=== PATIENT | male | born 1945 | race Caucasian/White ===

== ENCOUNTER 2016-07-28 08:32 | Day surgery (SDC) | payer MEDICARE ==
[2016-07-28] MEDS ORDERED: NEOMYCIN/POLY./DEXAM OPTH OINT OPTH ONE (11:44)
[2016-07-28] MEDS ORDERED: PHENYLEPHRINE HCL 2.5% OPTH 2ML BTL OP ONE (11:44)
[2016-07-28] MEDS ORDERED: PREDNISOLONE ACETATE 1% OPTH 10ML BOTTLE OPTH ONE (11:44)
[2016-07-28] MEDS ORDERED: EPINEPHRINE 1 MG/ML AMPUL SQ ONE (11:44)
[2016-07-28] MEDS ORDERED: DICLOFENAC SODIUM 2.5 ML DROPS OPTH ONE (11:44)
[2016-07-28] MEDS ORDERED: TROPICAMIDE 1% 15ML BTL OP ONE (11:44)
[2016-07-28] MEDS ORDERED: LIDOCAINE 2% MDV (20MG/ML) 20ML VIAL IV ONE ×2 (11:44→13:39)
[2016-07-28] MEDS ORDERED: TETRACAINE HCL 0.5% 15 ML OPTH BTL OPTH ONE (11:44)
[2016-07-28] MEDS ORDERED: TOBRAMYCIN 0.3% OPTH DROP 5 ML BTL OPTH ONE (11:44)
[2016-07-28] MEDS ORDERED: PROPOFOL 10 MG/ML VIAL IV ONE (13:39)
--- NOTE | 2016-07-28 16:21 | OP NOTE CHAMES ---
DATE OF PROCEDURE: 07/28/16 PREOPERATIVE DIAGNOSIS: Nuclear sclerotic and posterior subcapsular cataract, right eye. POSTOPERATIVE DIAGNOSIS: Nuclear sclerotic and posterior subcapsular cataract, right eye. OPERATION: Phacoemulsification of cataractous lens with implantation of intraocular lens. LENS IMPLANT USED: Dupont Model PCB00 + 22.5 diopters. COMPLICATIONS: None. PROCEDURE IN DETAIL: Following a retrobulbar and facial block, the patient was prepped and draped in the usual fashion for eye surgery. A lid speculum was placed in the right eye after which a 2.4 mm tunnel wound was placed at the temporal limbus and dissected into clear cornea. A paracentesis was placed at 2 oclock hours to the left and right of the initial incision and the chamber deepened with Viscoelastic. The keratome was then used to enter the anterior chamber after which the continuous circular capsulorrhexis was accomplished without difficulty using a bent needle and a Utrata forceps. Hydrodissection and hydrodelineation of the lens was performed after which the nucleus of the lens was removed using the Phaco handpiece in the [id number] technique. The residual cortical material was irrigated and aspirated from the eye after which the bag and chamber were re-examined. The bag was re-inflated with Viscoelastic and the intraocular lens injected into the capsular bag where it centered well. The Viscoelastic was then copiously irrigated and aspirated from the eye after which the temporal tunnel wound and paracentesis were hydrated and the wounds were examined. They were noted to be watertight. The lid speculum was removed from the eye and the eye patched and shielded. The patient was transferred to the recovery room in satisfactory condition and given an appointment to be reexamined in the clinic later today or as directed by Dr. Valladares. Mina Valladares M.D. Date & Time JOB NUMBER: [id number] MTDD
== END 2016-07-28 11:10 | disposition home or self-care (01) ==
LOC: SUR 08:32
PROVIDERS: ATTEND Ophthalmology
DX: H25.11 Age-related nuclear cataract, right eye (principal); H25.041 Posterior subcapsular polar age-related cataract, right eye; I10 Essential (primary) hypertension; E78.00 Pure hypercholesterolemia, unspecified
CPT/HCPCS: J0171

== ENCOUNTER 2016-10-13 21:31 | Observation (INO) | payer MEDICARE ==
--- NOTE | 2016-10-13 21:54 | Emergency Department Record ---
History of Present Illness - General Chief Complaint: Difficulty Breathing Stated Complaint: ELMER Time Seen by Provider: 10/13/16 21:53 Source: Patient, Family Mode of Arrival: Ambulatory - History of Present Illness Initial Comments: 71 yo male presents with an episode of dyspnea on exertion that occurred while hunting. The patient walked about 400 yards out into his field earlier to frias turkeys. He shot a turkey and then when to retrieve the bird. He began walking back to his truck with the bird and his gear and developed significant shortness of breath with walking. He was only able to walk about 50 yards. He called his son who helped him the remainder of the way. The remaining 350 yards required stops every 25-50 yards due dyspnea that was not present earlier when he walked out to the hunting spot. No syncope. No history of CAD. His symptoms have essential resolved at this time. This occurred at 8:20pm (started ). PCP is Dr Bell. Complaint: Shortness of breath Onset/Timin -: Hour(s) Severity: Severe Improves With: Nothing Worsens With: Nothing Context: Occurred during exertion Treatments Prior to Arrival: None - Related Data Home Medications Medication Instructions Recorded Confirmed Last Taken Bisoprolol Fumarate/Hctz [Ziac 1 each PO DAILY 06/04/16 10/13/16 10/12/16 2.5-6.25 mg Tablet] Simvastatin [Zocor] 20 mg PO QHS 06/04/16 10/13/16 10/12/16 Allergies Allergy/AdvReac Type Severity Reaction Status Date / Time No Known Drug Allergies Allergy Verified 06/04/16 23:50 Travel Screening - Travel/Exposure Within Last 30 Days Have you traveled within the last 30 days?: No Review of Systems Constitutional: Denies: Chills, Fever, Weakness Eyes: Denies: Eye discharge ENT: Denies: Congestion, Throat pain Respiratory: Reports: Dyspnea. Denies: Cough, Hemoptysis, Stridor, Wheezes Cardiovascular: Denies: Arrhythmia, Chest pain (dyspnea), Syncope Endocrine: Denies: Fatigue, Polydipsia, Polyuria Gastrointestinal: Denies: Constipation, Nausea, Vomiting Genitourinary: Denies: Dysuria, Frequency, Hematuria Musculoskeletal: Denies: Arthralgia, Back pain, Joint swelling, Myalgia, Neck pain Skin: Denies: Bruising, Change in color, Rash Neurological: Denies: Confusion, Headache, Numbness, Weakness Psychiatric: Denies: Anxiety Hematological/Lymphatic: Denies: Blood Clots, Easy bleeding, Easy bruising, Swollen glands Past Medical History - SOCIAL HISTORY Smoking Status: Never smoker Alcohol Use: None Drug Use: None - RESPIRATORY Hx Respiratory Disorders: Yes Hx Pneumonia: Yes Hx Pulmonary Embolism: Yes - CARDIOVASCULAR Hx Cardio Disorders: Yes Hx Hypertension: Yes - NEURO Hx Neuro Disorders: No - GI Hx GI Disorders: Yes Hx of Polyps: Yes - Hx Genitourinary Disorders: No - ENDOCRINE Hx Endocrine Disorders: No Hx Diabetes: No Hx Thyroid Disease: No - MUSCULOSKELETAL Hx Musculoskeletal Disorders: No - PSYCH Hx Psych Problems: No - HEMATOLOGY/ONCOLOGY Hx Hematology/Oncology Disorders: Yes Hx Cancer: Yes (back) Family Medical History Any Significant Family History?: Yes Hx Cancer: Mother *Cancer Comment: pancreatic Hx Resp Disorders: Father, Children *Resp Comment: emphysema Physical Exam - General General Appearance: Alert, Oriented x3, Cooperative, No acute distress Limitations: No limitations - Head Head exam: Atraumatic, Normal inspection - Eye Eye exam: Normal appearance, PERRL. negative: Conjunctival injection, Periorbital swelling - ENT ENT exam: Normal exam, Mucous membranes moist Ear exam: Normal external inspection Nasal Exam: Normal inspection Mouth exam: Normal external inspection Teeth exam: Normal inspection Throat exam: Normal inspection - Neck Neck exam: Normal inspection, Full ROM. negative: Tenderness - Respiratory Respiratory exam: Decreased breath sounds. negative: Accessory muscle use, Chest wall tenderness, Prolonged expiratory, Rales, Respiratory distress, Rhonchi, Stridor, Wheezes - Cardiovascular Cardiovascular Exam: Regular rate, Normal rhythm, Normal heart sounds - GI/Abdominal GI/Abdominal exam: Soft. negative: Tenderness - Rectal Rectal exam: Deferred - exam: Deferred - Extremities Extremities exam: Normal inspection, Full ROM, Normal capillary refill. negative: Pedal edema, Tenderness - Back Back exam: Reports: Normal inspection - Neurological Neurological exam: Alert, Normal gait, Oriented X3 - Psychiatric Psychiatric exam: Normal affect, Normal mood. negative: Agitated, Anxious - Skin Skin exam: Dry, Intact, Normal color, Warm Course Vital Signs 10/13/16 21:36 Pulse Rate [ 87 Pulse Ox Probe] Respiratory 16 Rate Blood Pressure 166/97 [Left Arm] Pulse Ox 96 - Reevaluation(s) Reevaluation #1: EKG 21:36 NSR, rate 86, intervals normals, axis left, St normal, mild artifact not limiting read 10/13/16 21:53 Medical Decision Making - Lab Data Result diagrams: 10/13/16 22:03 10/13/16 22:03 Disposition Forms: Patient Portal Access
[2016-10-13] MEDS ORDERED: ASPIRIN 325 MG TABLET PO ONE (22:03)
[2016-10-13] MEDS ORDERED: ASPIRIN 81 MG CHEWABLE TABLET PO ONE (22:15)
[2016-10-13 22:20] LABS: BASO % 0.1 % (0-6); EOS % 1.2 % (0-6); GRAN % 75.4 % (47-80); HEMOGLOBIN 15.6 gm/dl (14.0-18.0); LYMPH % 14.8 % (16-45); MEAN CELL VOLUME 87.7 fl (81-97); MEAN CORPUSCULAR HEMOGLOBIN 30.4 pg (27-33); MEAN CORPUSCULAR HGB CONC 34.7 g/dl (32-36); MEAN PLATELET VOLUME 9.2 fl (7.4-10.4); MONO % 8.5 % (0-9); PLATELET COUNT 169 K/uL (130-400); RED BLOOD COUNT 5.13 M/uL (4.40-5.70); RED CELL DISTRIBUTION WIDTH 12.8 % (11.5-14.5); WHITE BLOOD COUNT W/O DIFF 6.8 K/uL (4.2-12.2)
[2016-10-13 22:29] LABS: ALB/GLOB RATIO 1.8 (1.1-1.8); ALBUMIN 4.4 gm/dL (3.5-5.0); ALKALINE PHOSPHATASE 89 U/L (38-126); ALT/SGPT 36 U/L (21-72); ANION GAP 12.2 (7-16); AST/SGOT 31 U/L (17-59); BILIRUBIN,TOTAL 1.12 mg/dL (0.2-1.3); BLOOD UREA NITROGEN 21 mg/dL (9-20); CARBON DIOXIDE 22.8 mmol/L (22-30); CREATINE PHOSPHOKINASE 292 U/L (55-170); CREATININE 1.2 mg/dL (0.66-1.25); EST GLOMERULAR FILTRATION RATE > 60 ml/min; GLUCOSE,RANDOM 101 mg/dL (70-110); TOTAL PROTEIN 6.8 gm/dL (6.3-8.2)
[2016-10-13 22:42] LABS: TROPONIN I < 0.012 ng/mL (0.00-0.034)
--- NOTE | 2016-10-13 22:53 | Emergency Department Record ---
History of Present Illness - General Chief Complaint: Difficulty Breathing Stated Complaint: ELMER Time Seen by Provider: 10/13/16 21:53 Source: Patient, Family Mode of Arrival: Ambulatory Limitations: No limitations - History of Present Illness Initial Comments: This chart represents the addendum, please refer to the initial encounter chart for details. Onset/Timin -: Hour(s) Severity: Severe Improves With: Nothing Worsens With: Nothing Context: Occurred during exertion Treatments Prior to Arrival: None - Related Data Home Medications Medication Instructions Recorded Confirmed Last Taken Bisoprolol Fumarate/Hctz [Ziac 1 each PO DAILY 06/04/16 10/13/16 10/12/16 2.5-6.25 mg Tablet] Simvastatin [Zocor] 20 mg PO QHS 06/04/16 10/13/16 10/12/16 Allergies Allergy/AdvReac Type Severity Reaction Status Date / Time No Known Drug Allergies Allergy Verified 06/04/16 23:50 Travel Screening - Travel/Exposure Within Last 30 Days Have you traveled within the last 30 days?: No Review of Systems Constitutional: Denies: Chills, Fever, Weakness Eyes: Denies: Eye discharge ENT: Denies: Congestion, Throat pain Respiratory: Reports: Dyspnea. Denies: Cough, Hemoptysis, Stridor, Wheezes Cardiovascular: Denies: Arrhythmia, Chest pain (dyspnea), Syncope Endocrine: Denies: Fatigue, Polydipsia, Polyuria Gastrointestinal: Denies: Constipation, Nausea, Vomiting Genitourinary: Denies: Dysuria, Frequency, Hematuria Musculoskeletal: Denies: Arthralgia, Back pain, Joint swelling, Myalgia, Neck pain Skin: Denies: Bruising, Change in color, Rash Neurological: Denies: Confusion, Headache, Numbness, Weakness Psychiatric: Denies: Anxiety Hematological/Lymphatic: Denies: Blood Clots, Easy bleeding, Easy bruising, Swollen glands Past Medical History - SOCIAL HISTORY Smoking Status: Never smoker Alcohol Use: None Drug Use: None - RESPIRATORY Hx Respiratory Disorders: Yes Hx Pneumonia: Yes Hx Pulmonary Embolism: Yes - CARDIOVASCULAR Hx Cardio Disorders: Yes Hx Hypertension: Yes - NEURO Hx Neuro Disorders: No - GI Hx GI Disorders: Yes Hx of Polyps: Yes - Hx Genitourinary Disorders: No - ENDOCRINE Hx Endocrine Disorders: No Hx Diabetes: No Hx Thyroid Disease: No - MUSCULOSKELETAL Hx Musculoskeletal Disorders: No - PSYCH Hx Psych Problems: No - HEMATOLOGY/ONCOLOGY Hx Hematology/Oncology Disorders: Yes Hx Cancer: Yes (back) Family Medical History Any Significant Family History?: Yes Hx Cancer: Mother *Cancer Comment: pancreatic Hx Resp Disorders: Father, Children *Resp Comment: emphysema Physical Exam - General Limitations: No limitations Course Vital Signs 10/13/16 21:36 Pulse Rate [ 87 Pulse Ox Probe] Respiratory 16 Rate Blood Pressure 166/97 [Left Arm] Pulse Ox 96 - Reevaluation(s) Reevaluation #1: The prelim CXR was reviewed. No acute process. 10/13/16 22:57 Medical Decision Making - Lab Data Result diagrams: 10/13/16 22:10 10/13/16 22:10 Lab Results 10/13/16 10/13/16 Range/Units 22:10 22:10 WBC 6.8 (4.2-12.2) K/uL RBC 5.13 (4.40-5.70) M/uL Hgb 15.6 (14.0-18.0) gm/dl Hct 45.0 (42.0-52.0) % MCV 87.7 (81-97) fl MCH 30.4 (27-33) pg MCHC 34.7 (32-36) g/dl RDW 12.8 (11.5-14.5) % Plt Count 169 (130-400) K/uL MPV 9.2 (7.4-10.4) fl Gran % 75.4 (47-80) % Lymphocytes % 14.8 L (16-45) % Monocytes % 8.5 (0-9) % Eosinophils % 1.2 (0-6) % Basophils % 0.1 (0-6) % Sodium 137 (136-145) mmol/L Potassium 3.9 (3.5-5.1) mmol/L Chloride 102 (98-107) mmol/L Carbon Dioxide 22.8 (22-30) mmol/L Anion Gap 12.2 (7-16) BUN 21 H (9-20) mg/dL Creatinine 1.2 (0.66-1.25) mg/dL Estimated GFR > 60 ml/min Random Glucose 101 (70-110) mg/dL Calcium 8.7 (8.5-10.1) mg/dL Total Bilirubin 1.12 (0.2-1.3) mg/dL AST 31 (17-59) U/L ALT 36 (21-72) U/L Alkaline Phosphatase 89 (38-126) U/L Creatine Kinase 292 H (55-170) U/L CK-MB (CK-2) 6.0 (0-6) ug/L Troponin I < 0.012 (0.00-0.034) ng/mL NT-Pro-B Natriuret Pep 206.00 H (<125) pg/mL Total Protein 6.8 (6.3-8.2) gm/dL Albumin 4.4 (3.5-5.0) gm/dL Globulin 2.4 (1.4-4.8) gm/dL Albumin/Globulin Ratio 1.8 (1.1-1.8) Disposition Disposition: Admit Clinical Impression: Dyspnea on exertion Disposition: Still a Patient at [facility] Decision to Admit: Admit from ER Decision to Admit Date: 10/13/16 Decision to Admit Time: 22:50 Condition: (1) Good Forms: Patient Portal Access Time of Disposition: 22:50
[2016-10-14] MEDS ORDERED: SIMVASTATIN 20 MG TABLET PO SCH
[2016-10-14] MEDS: ZIAC PO SCH ×2 (00:11→09:36)
--- NOTE | 2016-10-14 07:39 | RADIOLOGY REPORT ---
EXAM: CHEST, TWO VIEWS HISTORY: PATIENT HAS SHORTNESS OF BREATH. TECHNIQUE: Two views of the chest were provided without comparison studies. FINDINGS: The cardiac silhouette is within normal limits for size and contour. Tortuosity of the thoracic aorta is noted. There is no radiographic evidence of a focal infiltrate or pleural effusion. No pneumothorax is noted. IMPRESSION: NO RADIOGRAPHIC EVIDENCE OF AN ACUTE INTRATHORACIC PROCESS. JOB NUMBER: [id number] MTDD
--- NOTE | 2016-10-14 08:01 | History & Physical ---
History of Present Illness - Date of Service Date of Service for History & Physical: 10/14/16 - History of Present Illness Admitting Diagnosis: Dyspnea on Exertion History of Present Illness: 71yo male with CC of dyspnea with exertion. He has a history of htn, high cholesterol. Had pneumonia with pleural effusion last year and was admitted to [facility]. Patient reports he had echo done at that time that was "normal" but did not have stress testing. Patient was brought to the ED by his son after they had been out turkey hunting. He had walked about 400 feet in to the field without issue but on his way back to the truck started becoming very short of breath. He could only go 25 -50 feet at a time before he would have to stop and take a break. Dyspnea seemed to resolve with rest. He was not having chest pain. While in the ED, patient had EKG which showed normal sinus rhythm. no acute ST changes. 1st set of CE returned wnl. CXR showed no acute process. blood pressure was elevated at 166/97 and o2 sat was 96%. CBC and CMP unremarkable. Patient was admitted for serial enzymes and cardiology was consulted. 10/14/16- Patient states he is doing well this morning. Says his dyspnea had resolved prior to coming to the ED and has not had any further episodes. Says his son made him come in. He denies any chest pain now or previously. reports history of high blood pressure controlled by his ziac. He denies family history of CAD or [place]. He denies lower extremity swelling, decreased exercise tolerance, frequent headaches, inability to sleep laying flat. No previous history of DVT or PE and no family history of clotting disorder. PCP: [facility] Travel Screening - Travel/Exposure Within Last 30 Days Have you traveled within the last 30 days?: No - Travel/Exposure Within Last Year Have you traveled outside the [place] in the last year?: No - Additonal Travel Details Have you been exposed to anyone with a communicable illness?: No - Travel Symptoms Symptom Screening: None Review of Systems Constitutional: Denies: Chills, Fever, Weakness Eyes: Denies: Eye discharge ENT: Denies: Congestion, Throat pain Respiratory: Reports: Dyspnea (yesterday with exertion). Denies: Cough, Hemoptysis, Stridor, Wheezes Cardiovascular: Denies: Arrhythmia, Chest pain, Syncope Endocrine: Denies: Fatigue, Polydipsia, Polyuria Gastrointestinal: Denies: Constipation, Nausea, Vomiting Genitourinary: Denies: Dysuria, Frequency, Hematuria Musculoskeletal: Denies: Arthralgia, Back pain, Joint swelling, Myalgia, Neck pain Skin: Denies: Bruising, Change in color, Rash Neurological: Denies: Confusion, Headache, Numbness, Weakness Psychiatric: Denies: Anxiety Hematological/Lymphatic: Denies: Blood Clots, Easy bleeding, Easy bruising, Swollen glands Past Medical History - SOCIAL HISTORY Smoking Status: Never smoker Alcohol Use: Rare - RESPIRATORY Hx Respiratory Disorders: Yes Hx Pneumonia: Yes Hx Pulmonary Embolism: Yes - CARDIOVASCULAR Hx Cardio Disorders: Yes Hx Hypertension: Yes - NEURO Hx Neuro Disorders: No - GI Hx GI Disorders: Yes Hx of Polyps: Yes - Hx Genitourinary Disorders: No - ENDOCRINE Hx Endocrine Disorders: No Hx Diabetes: No Hx Thyroid Disease: No - MUSCULOSKELETAL Hx Musculoskeletal Disorders: No - PSYCH Hx Psych Problems: No - HEMATOLOGY/ONCOLOGY Hx Hematology/Oncology Disorders: Yes Hx Cancer: Yes (back) Family Medical History Any Significant Family History?: Yes Hx Cancer: Mother *Cancer Comment: pancreatic Hx Resp Disorders: Father, Children *Resp Comment: emphysema H&P Meds/Allergies - Allergies Allergies: Allergies Allergy/AdvReac Type Severity Reaction Status Date / Time No Known Drug Allergies Allergy Verified 06/04/16 23:50 - Home Medications Home Medications Medication Instructions Recorded Confirmed Last Taken Bisoprolol Fumarate/Hctz [Ziac 1 each PO DAILY 06/04/16 10/13/16 10/12/16 2.5-6.25 mg Tablet] Simvastatin [Zocor] 20 mg PO QHS 06/04/16 10/13/16 10/12/16 - Active Medications Active Medications: Current Medications Aspirin (Ecotrin (Ec)) 325 mg PO DAILY [facility] Patient Own Med:Ziac (2.5-6.25) 1 each PO QHS [facility] Last Admin: 10/14/16 00:11 Dose: 1 each Simvastatin (Zocor) 20 mg PO QHS [facility] Last Admin: 10/14/16 00:11 Dose: 20 mg Physical Exam - Vital Signs Vital Signs: Vital Signs - Last 24 Hrs Temp Pulse Resp BP Pulse Ox 10/14/16 07:53 97.7 F 74 18 134/84 95 10/13/16 23:35 97.8 F 80 18 159/93 94 L - General General Appearance: Alert, Oriented x3, Cooperative, No acute distress Limitations: No limitations - Head Head exam: Atraumatic, Normal inspection - Eye Eye exam: Normal appearance, PERRL. negative: Conjunctival injection, Periorbital swelling - ENT ENT exam: Normal exam, Mucous membranes moist Ear exam: Normal external inspection Nasal Exam: Normal inspection Mouth exam: Normal external inspection Teeth exam: Normal inspection Throat exam: Normal inspection - Neck Neck exam: Normal inspection, Full ROM. negative: Tenderness - Respiratory Respiratory exam: Decreased breath sounds. negative: Accessory muscle use, Chest wall tenderness, Prolonged expiratory, Rales, Respiratory distress, Rhonchi, Stridor, Wheezes - Cardiovascular Cardiovascular Exam: Regular rate, Normal rhythm, Normal heart sounds - GI/Abdominal GI/Abdominal exam: Soft. negative: Tenderness - Rectal Rectal exam: Deferred - exam: Deferred - Extremities Extremities exam: Normal inspection, Full ROM, Normal capillary refill. negative: Pedal edema, Tenderness - Back Back exam: Reports: Normal inspection - Neurological Neurological exam: Alert, Normal gait, Oriented X3 - Psychiatric Psychiatric exam: Normal affect, Normal mood. negative: Agitated, Anxious - Skin Skin exam: Dry, Intact, Normal color, Warm Results - Labs Result Diagrams: 10/13/16 22:10 10/13/16 22:10 Labs Last 24 Hours: Laboratory Results - last 24 hr 10/14/16 06:37 Troponin I 0.014 - Imaging and Cardiology Chest x-ray Status: Report reviewed (no acute process) VTE H&P Assessment - Risk for VTE Risk for VTE: Yes Risk Level: Low Risk Assessment Date: 10/14/16 Risk Assessment Time: 10:34 VTE Orders Placed or Will Be Placed: Yes Plan - Detailed Diagnosis and Plan (1) Dyspnea on exertion Current Visit: Yes Status: Acute Base Code: R06.09 - OTHER FORMS OF DYSPNEA Comment: 10/14/16- dyspnea resolved yesterday after resting and no further episodes. CXR showed NAP. 1st set of CE returned wnl. 2nd Troponin wnl range but up just slightly to 0.014. no EKG changes. -continue serial enzymes -cardiology consulted -continue cardic monitoring -vitals q8H (2) Hypertension Current Visit: Yes Status: Acute Qualifiers: Hypertension type: essential hypertension Qualified Code(s): I10 - Essential (primary) hypertension Base Code: I10 - ESSENTIAL (PRIMARY) HYPERTENSION Comment: 10/14/16- BP slightly above goal. Just received morning ziac. -Will continue to monitor (3) Full code status Current Visit: Yes Status: Acute Base Code: Z78.9 - OTHER SPECIFIED HEALTH STATUS Comment: 10/14/16- patient is full code (4) DVT prophylaxis Current Visit: Yes Status: Acute Base Code: [id number] - Comment: 10/14/16- patient is low risk. -encourage ambulation as tolerating -lovenox 40mg sq daily if prolonged stay anticipated
[2016-10-14] MEDS ORDERED: ASPIRIN 325 MG TAB ENTERIC-COATED PO SCH (10:00)
--- NOTE | 2016-10-14 12:55 | Discharge Summary ---
Providers Discharge Summary Date: 10/14/16 Date of admission: 10/13/16 23:33 Expected Date of Discharge: 10/14/16 Attending physician: FAWN IRIZARRY Physical Exam - Vital Signs Vital Signs: Vital Signs - Last 24 Hrs Temp Pulse Resp BP Pulse Ox 10/14/16 09:00 18 10/14/16 07:53 97.7 F 74 18 134/84 95 10/13/16 23:35 97.8 F 80 18 159/93 94 L - General General Appearance: Alert, Oriented x3, Cooperative, No acute distress Limitations: No limitations - Head Head exam: Atraumatic, Normal inspection - Eye Eye exam: Normal appearance, PERRL. negative: Conjunctival injection, Periorbital swelling - ENT ENT exam: Normal exam, Mucous membranes moist Ear exam: Normal external inspection Nasal Exam: Normal inspection Mouth exam: Normal external inspection Teeth exam: Normal inspection Throat exam: Normal inspection - Neck Neck exam: Normal inspection, Full ROM. negative: Tenderness - Respiratory Respiratory exam: Decreased breath sounds. negative: Accessory muscle use, Chest wall tenderness, Prolonged expiratory, Rales, Respiratory distress, Rhonchi, Stridor, Wheezes - Cardiovascular Cardiovascular Exam: Regular rate, Normal rhythm, Normal heart sounds - GI/Abdominal GI/Abdominal exam: Soft. negative: Tenderness - Rectal Rectal exam: Deferred - exam: Deferred - Extremities Extremities exam: Normal inspection, Full ROM, Normal capillary refill. negative: Pedal edema, Tenderness - Back Back exam: Reports: Normal inspection - Neurological Neurological exam: Alert, Normal gait, Oriented X3 - Psychiatric Psychiatric exam: Normal affect, Normal mood. negative: Agitated, Anxious - Skin Skin exam: Dry, Intact, Normal color, Warm Hospitalization - Hospitalization Admission Diagnosis: Dyspnea on Exertion - Problem List/Discharge Diagnosis (1) Dyspnea on exertion Status: Acute Base Code: R06.09 - OTHER FORMS OF DYSPNEA Comment: 10/14/16- dyspnea resolved yesterday after resting and no further episodes. CXR showed NAP. all 3 sets of CE wnl range. no EKG changes. D-dimer wnl range. Dr. Solorzano, cardiology, evaluated patient and ordered treadmill stress test and echo. Patient completed treadmill stress test but was not able to achieve heart rate goal. Echo showed normal EF and no wall motion abnormalities. -will discharge home with Nuclear stress test set up for Monday with Dr. Enriquez, cardiology -will increase his Ziac to 5-6.25mg and ask patient to hold the night prior to stress test -add baby aspirin 81mg daily -follow up as outpatient with cardiology as instructed and with pcp following completion of cardiac work-up. (2) Hypertension Status: Acute Discharge Diagnosis: Hypertension type: essential hypertension Qualified Code(s): I10 - Essential (primary) hypertension Base Code: I10 - ESSENTIAL (PRIMARY) HYPERTENSION Comment: 10/14/16- Increase ziac to 5-6.25mg po daily (3) Full code status Status: Acute Base Code: Z78.9 - OTHER SPECIFIED HEALTH STATUS Comment: - patient is full code (4) DVT prophylaxis Status: Acute Base Code: [id number] - Comment: 10/14/16- patient is low risk. -encourage ambulation as tolerating -lovenox 40mg sq daily if prolonged stay anticipated - Hospitalization Course Disposition: Home, Self-Care Hospital Course: 71yo male with CC of dyspnea with exertion. He has a history of htn, high cholesterol. Had pneumonia with pleural effusion last year and was admitted to [facility]. Patient reports he had echo done at that time that was "normal" but did not have stress testing. Patient was brought to the ED by his son after they had been out turkey hunting. He had walked about 400 feet in to the field without issue but on his way back to the truck started becoming very short of breath. He could only go 25 -50 feet at a time before he would have to stop and take a break. Dyspnea seemed to resolve with rest. He was not having chest pain. While in the ED, patient had EKG which showed normal sinus rhythm. no acute ST changes. 1st set of CE returned wnl. CXR showed no acute process. blood pressure was elevated at 166/97 and o2 sat was 96%. CBC and CMP unremarkable. Patient was admitted for serial enzymes and cardiology was consulted. 10/14/16- Patient states he is doing well this morning. Says his dyspnea had resolved prior to coming to the ED and has not had any further episodes. Says his son made him come in. He denies any chest pain now or previously. reports history of high blood pressure controlled by his ziac. He denies family history of CAD or NV. He denies lower extremity swelling, decreased exercise tolerance, frequent headaches, inability to sleep laying flat. No previous history of DVT or PE and no family history of clotting disorder. Procedures: Cardiology Procedures 10/14/16 11:33 Stress EKG/STD Treadmill NOW 10/14/16 11:35 Echo W/CF & Cardiac Doppler NOW Condition at Discharge: (2) Stable Discharge Medications - Discharge Medications Prescriptions: Aspirin [Aspir-Low] 81 mg PO DAILY #30 tablet. Bisoprolol Fumarate/Hctz [Ziac 5-6.25 mg Tablet] 1 each PO DAILY #30 tablet Home Medications: Ambulatory Orders Simvastatin [Zocor] 20 mg PO QHS 06/04/16 [Last Taken 10/12/16] Aspirin [Aspir-Low] 81 mg PO DAILY #30 tablet. 10/14/16 [Last Taken Unknown] Bisoprolol Fumarate/Hctz [Ziac 5-6.25 mg Tablet] 1 each PO DAILY #30 tablet 10/26 [Last Taken Unknown] Discharge Plan - Discharge Instructions Activity at Discharge: Resume Usual Activities As Tolerated Instructions: Aspirin (By mouth), Bisoprolol/Hydrochlorothiazide (By mouth), Transthoracic Echocardiogram (DC), Pharmacologic with Radiopharmacologic Stress Testing (DC) Additional Instructions: 2 Activity: Resume Usual Activities As Tolerated 2 Diet: As tolerated 2 Consults: [] 2 Follow Up: [Follow up on Monday for Nuclear Stress test with Dr. Enriquez here at [facility], [facility] will call Monday am for an appointment time, keep 1pm- 4pm open on Monday, October 17. If they have not contact you by 10am, please call [phone] to find out the status of your appointment. Follow up with your primary care physician in 7-10 days] 2 Dressing/Wound Care: (Type) (Change) 2 Additional: [] Continue home medications Hold your ziac the night before the study (no Ziac Monday night) New medications Discontinue the Ziac 2.5-6.25 and start Ziac 5-6.25 Start baby aspirin 81mg daily
--- NOTE | 2016-10-19 13:04 | Medical Records Consult ---
DATE OF CONSULTATION: 10/14/16 INDICATION: Dyspnea on exertion. This is a 71-year-old male was seen in the Emergency Department. He was out turkey hunting on and he was just sitting waiting for turkeys for about four or five hours and eventually he saw one, he shot it and when he was carrying the turkey back to the truck about 100 yards he was very short of breath. The turkey weighed about 25 pounds. He is not used to carrying heavy weight when he walks. He was not having any chest discomfort. He could go 25 to 50 feet at a time and he would have to rest. Eventually his son came and carried the turkey and he was able to walk back to the truck much easier. He was still short of breath, but not having as much dyspnea and he had no chest discomfort of any kind. EKG shows a sinus rhythm with no acute ST-T wave changes. He denies any chest pain or symptoms like this during his normal daily activities. PAST MEDICAL HISTORY: Hypertension and high cholesterol. Malignancy? and pulmonary embolism?, these were on the Emergency Department notes. The patient denies any history of malignancy or embolism. HOME MEDS: Bisoprolol and Hydrochlorothiazide 2.5/6.25 one daily, Simvastatin 20 mg daily, and aspirin not taking at home, but was given one aspirin in the Emergency Department. ALLERGIES: No known drug allergies. FAMILY HISTORY: Noncontributory for cardiac issues. There is a family history of malignancy. SOCIAL HISTORY: Never smoked. Alcohol use is rare. No illicit drugs. History of pulmonary embolism in the Emergency Room notes stated yes. Patient now states his breathing is at baseline. He is ambulating in his room with no issues. PHYSICAL EXAMINATION: Vital signs - Temperature 97.7, blood pressure 134/84, pulse 74, respirations 18, pulse ox 95% on room air. GENERAL: Alert in no apparent distress. HEENT: Normocephalic, atraumatic. NECK: Supple. No JVD. No carotid bruits. CARDIAC: Regular rhythm. No murmurs, rubs, or gallops. PULMONARY: Clear to auscultation. No accessory muscle use. ABDOMEN: Obese, nontender. Positive bowel sounds. No bruits. EXTREMITIES: No edema. Radial and pedal pulses are intact. Femoral pulses are intact bilaterally. LABORATORY: Cardiac enzymes are within normal limits to date. Last Troponin was 0.014, this was over ten hours after his symptoms. Other lab work - See EMR. EKG - Sinus rhythm. ASSESSMENT/PLAN: DYSPNEA ON EXERTION, UNCLEAR ETIOLOGY. IT MAY BE SIMPLE JUST CARRYING THE TURKEY, BUT GIVEN HIS QUESTIONABLE HISTORY OF PULMONARY EMBOLISM I WOULD RECOMMEND A PULMONARY EVALUATION WORK-UP WITH AT LEAST A D-DIMER, CT OF THE CHEST SHOULD BE ALSO CONSIDERED. SINCE HE IS STATING HE IS BACK TO HIS BASELINE BREATHING, HE IS NOT TACHYCARDIAC, I FEEL WE CAN DO A REGULAR STRESS TEST TO RE-STRATIFY HIM IN TERMS OF HIS CARDIAC RISK, AND WE WILL ALSO CHECK AN ECHOCARDIOGRAM Robbie Solorzano D.O. Date & Time JOB NUMBER: [id number] MTDD
--- NOTE | 2016-10-20 10:39 | Stress Test Report ---
DATE OF STUDY: 10/14/2016 Exercise stress test. Indication: Dyspnea on exertion. Baseline EKG: Sinus rhythm with PVC, nonspecific ST-T-wave changes, ventricular rate 91, blood pressure 160/100, FL interval 172 ms, QRS 98 ms, QT corrected 477 ms. The patient exercised on a motorized treadmill for 8 minutes and 24 seconds achieving a peak MET level of approximately 10 METS. Peak heart rate was 137 beats per minute. Peak blood pressure was 196/102. The test was terminated due to fatigue. Continuous ECG monitoring revealed [address] depression seen only in late recovery. The patient had no complaints of chest discomfort. The patient had no shortness of breath that he experienced while out hunting yesterday. There were no significant ventricular atrial arrhythmias identified. IMPRESSION: Abnormal exercise stress test with [address] depression in the lateral leads in recovery. No chest discomfort. No significant shortness of breath to the exercise level achieved. The patient was instructed to start taking 81 mg of aspirin. He is already on a statin. I would recommend, given his EKG changes and history, repeating his stress test with nuclear imaging. This will be ordered before his discharge. An echocardiogram is also pending. We will follow up with them after his nuclear stress test as an outpatient. Would also recommend placing him on a small dose of a beta-rachel, Toprol-XL 25 mg with instructions to hold the beta-rachel on the day of his stress test, bring it with him and take it after the stress test is completed. DO ALYSE Russo
== END 2016-10-14 17:05 | disposition home or self-care (01) ==
LOC: ER 21:31 → MEDSURG 23:33
PROVIDERS: ADMIT Family Medicine; ATTEND Family Medicine
DX: R06.00 Dyspnea, unspecified (principal); Z86.711 Personal history of pulmonary embolism; I10 Essential (primary) hypertension; Z78.9 Other specified health status; E78.00 Pure hypercholesterolemia, unspecified
CPT/HCPCS: 99285 ×2; 82550; 85025; 82553; 84484 ×2; 80053; 85379; 83880; 71020; 94760; 93005 ×2; 93017; 93010 ×2; G0378 ×2; 99220